=== PATIENT | male | born 1975 | race Caucasian/White ===

== ENCOUNTER 2017-01-28 10:24 | Emergency (ER) | payer OTHER ==
[~2017-01-28] VITALS: Ht 167.6 cm; Wt 90.0 kg
[~2017-01-28 10:24] MED LIST: FLM4 PO; IBUP-103 PO
[2017-01-28 10:29] VITALS: TEMP 36.8; Ht 167.6 cm; Wt 90.0 kg
[2017-01-28] MEDS ORDERED: ONDANSETRON 4MG OD TAB PO STA (11:12)
[2017-01-28] MEDS ORDERED: OXYCODONE HCL IR 5 MG TAB (IMMEDIATE RELEASE) PO STA (11:12)
--- NOTE | 2017-01-28 11:55 | DIAGNOSTIC IMAGING REPORT ---
CERVICAL SPINE CT CT DOSE: 522.83 mGycm HISTORY: Fall. Neck pain. trauma TECHNIQUE: Multiaxial CT images of the cervical spine were performed and reformatted in the sagittal and coronal plane without the use of contrast. COMPARISON: None. FINDINGS: No fractures. No subluxation. Prevertebral soft tissues and the C1-C2 interval are intact. No pneumothorax. Complete opacification of the right mastoid air cells and right middle ear cavity. Mild disc space narrowing and small endplate osteophytes at C5-C6. IMPRESSION: No fractures within the cervical spine. Complete opacification of the right mastoid air cells and right middle ear cavity. Electronically signed by: Jeromy Nelson M.D. 01/28/2017 11:54 AM Dictated Date/Time: 01/28/2017 11:48 AM
--- NOTE | 2017-01-28 11:58 | DIAGNOSTIC IMAGING REPORT ---
CT SCAN OF THE BRAIN WITHOUT IV CONTRAST CLINICAL HISTORY: Fall with head injury. COMPARISON STUDY: CT the brain dated 02/09/2009. TECHNIQUE: Unenhanced axial CT scan of the brain is performed from the vertex to the skull base. Automated dose control exposure was utilized. CT DOSE: 823.94 mGycm FINDINGS: Brain parenchyma: The brain parenchyma is normal in appearance. There is no hemorrhage, mass effect, or evidence of acute territorial ischemia by CT criteria. Maki-white matter is preserved. No extra-axial fluid collection is seen. Ventricles, sulci, cisterns: Normal in configuration. Intracranial vasculature: The visualized intracranial vasculature at the skull base is normal in appearance. Calvarium: There is no depressed femoral fracture. Soft tissues: There is a scalp contusion over the posterior vertex. Sinuses and mastoids: The visualized paranasal sinuses are clear. There is a large right mastoid effusion. The left mastoid air cells are well pneumatized. Orbits: The bony orbits are grossly intact. IMPRESSION: 1. No acute intracranial abnormality. 2. Large right mastoid effusion. 3. Posterior scalp contusion. No depressed calvarial fracture is seen. Electronically signed by: Carlos Joshua M.D. 01/28/2017 11:56 AM Dictated Date/Time: 01/28/2017 11:44 AM
[2017-01-28] MEDS ORDERED: CYCL10TA6 PO (12:59)
--- NOTE | 2017-01-28 12:59 | EMERGENCY ROOM VISIT NOTE ---
ED Visit Note First contact with patient: 10:34 CHIEF COMPLAINT: Head injury and neck pain after a fall at work work HISTORY OF PRESENT ILLNESS: Patient is a 41-year-old white male who generally enjoys good health, who presents to emergency department for evaluation of head and neck pain after a fall. Roughly 1 hour ago, patient states that he slipped on ice and fell, he landed striking the back of his head on concrete. He states that he acutely felt pain in the back of his head and in his neck radiating slightly towards his shoulders. He did not lose consciousness, but states that he felt tingly all over and felt like he couldn't move his arms. He states that those symptoms have subsequently resolved. He complains of pain where he struck his head in addition to a mild generalized headache. He notes pain in the neck, bilaterally radiating into the shoulders. He reports feeling slightly nauseous and photophobic. He denies any numbness, tickling or weakness radiating into the upper extremities presently. He rates his discomfort a 7/10. He is uncomfortable because of the cervical collar placed in triage. He has a remote history of renal cell carcinoma and treated with nephrectomy. He has a history of multiple kidney stones. He denies any difficulty with balance, speech or coordination. No vomiting. He denies any other injuries related to the fall. REVIEW OF SYSTEMS:Review of systems as per HPI. All other systems reviewed were negative. 10 systems reviewed. PMH: Electronic medical records are reviewed and summarized as above/below. See Problem List. SOCIAL HISTORY: Patient lives at home with his family. 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 Former smoker. PHYSICAL EXAM: CONSTITUTIONAL: Patient is uncomfortable appearing 41-year-old white male who is awake and alert and laying in a darkened room. He has a cervical collar on. HEENT: Normocephalic, atraumatic. Tender in the occipital area, no palpable scalp hematoma. Pupils equal, round, reactive to light and accommodation. EOMs intact without nystagmus. Sclera are anicteric. Tympanic membranes intact , with normal landmarks. External canals are clear. No hemotympanum or Singh sign. Oral and nasopharynx are clear. No CSF rhinorrhea. Mucous membranes are moist. NECK: Supple, nontender, no lymphadenopathy. Full range of motion. HEART: Regular rate and rhythm, with normal S1 and S2, no murmur or gallop or rub is heard. LUNGS: Breath sounds equal and clear to auscultation without wheezes, rales, or rhonchi heard. SKIN: No lesions or rash, normal skin turgor. EXTREMITIES: No cyanosis, edema, joint tenderness or swelling. No deformity. SPINE: Patient has a hard cervical collar in place. He was laid in a prone position and the collar was opened. The posterior spinous processes were palpated, and were nontender to palpation. He had discomfort with attempts at flexion and rotation. NEUROLOGICAL: Alert and oriented x4. Cranial nerves 2 through 12, sensation and strength grossly intact. Gait is normal. Negative Romberg, and pronator drift. Finger to nose, finger to finger and rapid alternating movements are intact. Immediate, recent and remote memories are intact. Concentration is normal. ED course: The patient was seen and evaluated as above. He was medicated with [place] and Zofran for discomfort. Head and cervical spine CT scans were obtained and were negative for acute fracture or intracranial bleed. Right middle ear effusion and right mastoid were opacified. The patient was reassessed after CT scan. He reported significant improvement in his discomfort with the oral medication. He was reexamined and had full range of motion of the cervical spine without any discomfort. He reports that he has problems with chronic congestion. He has had diminished hearing in the right ear for several months, but due to lack of insurance he has not been able to follow-up. He does not demonstrate any findings consistent with acute otitis media or mastoiditis by physical exam which would require antibiotics, and per the patient it sounds like this is chronic in nature. With regards to his fall, I discussed with him closed head injury and cervical strain treatment. I did discuss with him the possibility of a mild concussion,, and outlined head injury instructions with him. He does not demonstrate any evidence for acute intracranial bleed, skull fracture, cervical spine fracture or unstable ligamentous injury of the cervical spine. He rated his discomfort a 3/10 at discharge. His is driving. CERVICAL SPINE CT CT DOSE: 522.83 mGycm HISTORY: Fall. Neck pain. trauma TECHNIQUE: Multiaxial CT images of the cervical spine were performed and reformatted in the sagittal and coronal plane without the use of contrast. COMPARISON: None. FINDINGS: No fractures. No subluxation. Prevertebral soft tissues and the C1-C2 interval are intact. No pneumothorax. Complete opacification of the right mastoid air cells and right middle ear cavity. Mild disc space narrowing and small endplate osteophytes at C5-C6. IMPRESSION: No fractures within the cervical spine. Complete opacification of the right mastoid air cells and right middle ear cavity. CT SCAN OF THE BRAIN WITHOUT IV CONTRAST CLINICAL HISTORY: Fall with head injury. COMPARISON STUDY: CT the brain dated 02/09/2009. TECHNIQUE: Unenhanced axial CT scan of the brain is performed from the vertex to the skull base. Automated dose control exposure was utilized. CT DOSE: 823.94 mGycm FINDINGS: Brain parenchyma: The brain parenchyma is normal in appearance. There is no hemorrhage, mass effect, or evidence of acute territorial ischemia by CT criteria. Maki-white matter is preserved. No extra-axial fluid collection is seen. Ventricles, sulci, cisterns: Normal in configuration. Intracranial vasculature: The visualized intracranial vasculature at the skull base is normal in appearance. Calvarium: There is no depressed femoral fracture. Soft tissues: There is a scalp contusion over the posterior vertex. Sinuses and mastoids: The visualized paranasal sinuses are clear. There is a large right mastoid effusion. The left mastoid air cells are well pneumatized. Orbits: The bony orbits are grossly intact. IMPRESSION: 1. No acute intracranial abnormality. 2. Large right mastoid effusion. 3. Posterior scalp contusion. No depressed calvarial fracture is seen. Problem List Medical Problems: (1) Acquired solitary kidney Status: Chronic (2) Acquired solitary kidney Status: Resolved (3) Flank pain Status: Resolved (4) Kidney stone Status: Resolved (5) Right flank pain Status: Resolved (6) Right ureteral stone Status: Resolved Surgical Problems: (1) H/O unilateral nephrectomy Permanent Comment: LEFT S/P TRAUMA, AGE 17 Status: Resolved Current/Historical Medications Scheduled PRN Cyclobenzaprine Hcl (Flexeril), 10 MG PO TID PRN for Muscle Spasms Allergies Coded Allergies: No Known Allergies (Unverified , 01/28/17) Vital Signs Date Time Temp Pulse Resp B/P Pulse Ox O2 Delivery O2 Flow Rate FiO2 01/28/17 13:16 79 18 148/92 99 01/28/17 10:29 36.8 84 16 153/103 96 Medications Administered Medications (Trade) Dose Ordered Sig/Darshana Route Start Time Stop Time Status Last Admin Dose Admin Ondansetron HCl (Zofran Odt) 4 mg NOW STAT PO 01/28/17 11:12 01/28/17 11:13 DC 01/28/17 11:21 4 MG Oxycodone HCl (Roxicodone Immediate Rel Tab) 5 mg NOW STAT PO 01/28/17 11:12 01/28/17 11:13 DC 01/28/17 11:21 5 MG Departure Information Impression Primary Impression: Closed head injury Additional Impressions: Cervical strain Fall Work related injury Prescriptions Cyclobenzaprine Hcl (FLEXERIL) 10 Mg Tab 10 MG PO TID Y for Muscle Spasms, #20 TAB Prov: Venita Fang PA 01/28/17 Referrals Mayte Olmstead M.D. (PCP) Patient Instructions My [facility] Additional Instructions DO NOT drive, drink alcohol, operate machinery, or perform dangerous activities today. You were given medications in the ER that can affect your ability to safely function or operate a vehicle. Rest and avoid strenuous activities for the next few days. Get 8-10 hours of sleep per night. Limit activities that involve significant concentration and attention during this time to speed your recovery. This includes studying, attending school, playing video games, and heavy reading. Your brain needs to rest. Eat right and eat often. Now is the time to feed your brain. Well balanced diets that avoid high sugar foods, sodas, caffeine, etc. are better for your brain. NO ALCOHOL OR DRUGS! Avoid stimulants like caffeine, red bull, mountain dew, "energy" drinks, etc. Ibuprofen(Motrin, Advil) may be used for fever or pain. Use 600mg every six hours as needed. Take with food. Avoid using more than 2400mg in a 24 hour period. Do not use 2400mg per day for more than three consecutive days without physician direction. Prolonged inappropriate use can lead to stomach upset or ulcers. (AND/OR) Acetaminophen(Tylenol) may be used for fever or pain. Use 1000mg every six hours as needed. Avoid using more than 3000mg in a 24 hour period. Cyclobenzaprine (Flexeril) 10 mg: Take 1 pills 3 times daily as needed for muscle spasms.. Avoid alcohol, operating machinery or dangerous equipment, working on ladders or roofs, DRIVING, or situations where being under the influence may be dangerous. Rest and avoid heavy lifting until your symptoms resolve and then gradually return to full activity. A good rule of thumb is if it hurts your neck to perform a certain activity, then it should be avoided until you are healthy again. A heating pad, warm compresses, or a hot shower may help with tight muscles and can be done several times a day as needed. Gentle stretching and range of motion exercises as tolerated. Continue current medications. FOLLOW UP INSTRUCTIONS: You should have a follow up with your workers compensation/occupational health physician in 3-5 days regarding your injury. Problems could arise over the next 24 to 48 hours. You should not be left alone and MUST go to the hospital immediately if you: -Have a headache that suddenly gets worse. -Are very drowsy or cannot be woken up from sleep. -Can't recognize people or places. -Have repeated vomiting. -Behave unusually, seemed confused, or start acting irritable. -Have a seizure (arms and legs start jerking uncontrollably). -Have weak or numb arms or legs. -Are unsteady on your feet -Experience slurred speech or difficulty speaking. Problem Qualifiers
[2017-01-28 13:16] VITALS: BP 148/92; PULSE 79; O2SAT 99
== END 2017-01-28 13:17 | disposition home or self-care (01) ==
LOC: C.EDB 10:26 → C.EDD 13:17
DX: S09.90XA Unspecified injury of head, initial encounter (principal); S16.1XXA Strain of muscle, fascia and tendon at neck level, initial encounter; W00.0XXA Fall on same level due to ice and snow, initial encounter; Y99.0 Civilian activity done for income or pay; Z87.891 Personal history of nicotine dependence

== ENCOUNTER 2018-06-23 14:20 | Emergency (ER) | payer OTHER ==
[~2018-06-23] VITALS: Ht 167.6 cm; Wt 92.7 kg
[2018-06-23 14:27] VITALS: TEMP 36.8; Ht 167.6 cm; Wt 92.7 kg
[2018-06-23] MEDS ORDERED: SODIUM CHLORIDE 0.9% 1000ML 1,000 ML IV STA (14:43)
[2018-06-23 15:00] LABS: BASO % 0.3 %; BASO ABS # 0.03 K/uL (0-0.2); EOS % 1.2 %; EOS ABS # 0.11 K/uL (0-0.5); HEMATOCRIT 44.1 % (42-52); HEMOGLOBIN 15.3 g/dL (14.0-18.0); IG# 0.03 K/uL (0.00-0.02); LYMPH % 22.7 %; LYMPH ABS # 2.17 K/uL (1.2-3.4); MEAN CELL VOLUME 86.3 fL (80-100); MEAN CORPUSCULAR HEMOGLOBIN 29.9 pg (25-34); MEAN CORPUSCULAR HGB CONC 34.7 g/dl (32-36); MEAN PLATELET VOLUME 10.5 fL (7.4-10.4); MONO % 6.3 %; NEUT % 69.2 %; PLATELET COUNT 279 K/uL (130-400); RED CELL DISTRIBUTION WIDTH CV 13.1 % (11.5-14.5); RED CELL DISTRIBUTION WIDTH SD 41.5 fL (36.4-46.3); WHITE BLOOD COUNT 9.54 K/uL (4.8-10.8)
--- NOTE | 2018-06-23 15:05 | DIAGNOSTIC IMAGING REPORT ---
SINGLE VIEW CHEST CLINICAL HISTORY: Weakness. Change in mental status. FINDINGS: An AP, portable, upright chest radiograph is compared to study dated 06/10/2006. The examination is degraded by portable technique and patient rotation. The heart is top normal for projection. The mediastinal contour is within normal limits. Linear atelectasis is seen in the left lower lung. The lungs and pleural spaces are otherwise clear. No pneumothorax is seen. The bony thorax is grossly intact. IMPRESSION: No active disease in the chest. Electronically signed by: Carlos Joshua M.D. 06/23/2018 3:04 PM Dictated Date/Time: 06/23/2018 3:04 PM
[2018-06-23] MEDS ORDERED: PRLSR20 PO (15:16)
[2018-06-23] MEDS ORDERED: CYCL5TAB PO (15:16)
[2018-06-23] MEDS ORDERED: FLUT0.15 NAE (15:16)
[2018-06-23 15:32] LABS: ALBUMIN 3.8 gm/dl (3.4-5.0); ALKALINE PHOSPHATASE 99 U/L (45-117); ALT/SGPT 27 U/L (12-78); AST/SGOT 14 U/L (15-37); BLOOD UREA NITROGEN 15 mg/dl (7-18); CALCIUM 8.3 mg/dl (8.5-10.1); CARBON DIOXIDE 26 mmol/L (21-32); CREATININE 1.21 mg/dl (0.60-1.40); GLUCOSE 126 mg/dl (70-99); POTASSIUM 3.7 mmol/L (3.5-5.1); SODIUM 137 mmol/L (136-145); TOTAL PROTEIN 7.4 gm/dl (6.4-8.2)
[2018-06-23 16:09] VITALS: BP 152/101; PULSE 87; O2SAT 96
--- NOTE | 2018-06-23 18:05 | EMERGENCY ROOM VISIT NOTE ---
History Report prepared by Solitario: Kimber Tyler Under the Supervision of: Dr. Mu Kirkpatrick D.O. First contact with patient: 14:31 Chief Complaint: PALPITATIONS Stated Complaint: HEART PALPITATIONS History of Present Illness The patient is a 42 year old male who presents to the Emergency Room with complaints of intermittent palpitations starting today. The patient states that he has had these palpitations once a month starting a year ago. He reports that they normally only last a few seconds and then go away. He states that today the episodes have been going on longer. He reports that it feels like it is fluttering and then beats really hard. He states that it then feels like it goes back to normal for a short time, but comes shortly after. The patient complains of being shaky and short of breath. The patient notes that last week for 4 days he was unable to walk because he had a "fiery" sensation down his left leg and into his foot. He reports that it completely resolved, but was unsure if it was related. The patient notes that he was started on Flexeril 2 months ago for neck pain he has while he sleeps. He notes that he is unsure if it is related. He notes that he has issues with low potassium once in a while. The patient denies leg swelling, chest pain, nausea, vomiting, recent travel outside the countries, recent surgeries, ever being seen by his PCP for these symptoms, a history of an appendectomy, and a history of cholecystectomy. The patient notes that he drinks alcohol once a week and was a smoker for 25 years, but quit 5 years ago. Source of History: patient Onset: today Position: chest Quality: other (palpitations) Timing: intermittent Associated Symptoms: + SOB, No chest pain, No nausea, No vomiting Note: The patient complains of being shaky. The patient denies leg swelling. Review of Systems See HPI for pertinent positives & negatives. A total of 10 systems reviewed and were otherwise negative. Past Medical & Surgical Medical Problems: (1) Acquired solitary kidney (2) Acquired solitary kidney (3) Flank pain (4) Kidney stone (5) Right flank pain (6) Right ureteral stone (7) S/p nephrectomy Surgical Problems: (1) H/O unilateral nephrectomy Family History Patient reports no known family medical history. Social History Smoking Status: Former Smoker Alcohol Use: occasionally Marital Status: single Housing Status: lives with significant other Occupation Status: employed Current/Historical Medications Scheduled Fluticasone Propionate (Nasal) (Flonase Allergy Relief), 1 SPRAY LENA DAILY Omeprazole (Prilosec), 20 MG PO BID Scheduled PRN Cyclobenzaprine Hcl (Flexeril), 5 MG PO BID PRN for PAIN OR MUSCLE SPASMS Allergies Coded Allergies: Citalopram (Verified Adverse Reaction, Unknown, SEXUAL AFFECTS, 06/23/18) Physical Exam Vital Signs Date Time Temp Pulse Resp B/P (MAP) Pulse Ox O2 Delivery O2 Flow Rate FiO2 06/23/18 16:09 87 16 152/101 96 06/23/18 15:26 87 06/23/18 15:02 Room Air 06/23/18 15:02 Room Air 06/23/18 14:27 36.8 110 20 164/104 96 Room Air Physical Exam GENERAL: Patient is awake, alert, and in no acute distress. Patient is resting comfortably and showing no signs of anxiety EYES: The conjunctivae are clear. The pupils are round and reactive. EARS, NOSE, MOUTH AND THROAT: The nose is without any evidence of any deformity. Mucous membranes are moist. Tongue is midline NECK: The neck is nontender and supple. RESPIRATORY: Normal respiratory effort is noted. There is no evidence of wheezing rhonchi or rales to auscultation. CARDIOVASCULAR: Regular rate noted. Ectopy noted to auscultation. No definite murmur. GASTROINTESTINAL: The abdomen is soft. Bowel sounds are present in all quadrants. Abdomen is nontender. MUSCULOSKELETAL/EXTREMITIES: There is no evidence of gross deformity. Full range of motion is noted in the hips and shoulders. SKIN: There is no obvious evidence of any rash. There are no petechiae, pallor or cyanosis noted. NEUROLOGIC: Patient is awake alert and oriented x3. Strength is symmetric. Patellar reflexes are 2+ bilaterally. Medical Decision & Procedures ER Provider Diagnostic Interpretation: Radiology results as stated below per my review and radiologist interpretation: SINGLE VIEW CHEST CLINICAL HISTORY: Weakness. Change in mental status. FINDINGS: An AP, portable, upright chest radiograph is compared to study dated 06/10/2006. The examination is degraded by portable technique and patient rotation. The heart is top normal for projection. The mediastinal contour is within normal limits. Linear atelectasis is seen in the left lower lung. The lungs and pleural spaces are otherwise clear. No pneumothorax is seen. The bony thorax is grossly intact. IMPRESSION: No active disease in the chest. Electronically signed by: Carlos Joshua M.D. 06/23/2018 3:04 PM Dictated Date/Time: 06/23/2018 3:04 PM Laboratory Results 06/23/18 14:49 Red Blood Count 5.11, Mean Corpuscular Volume 86.3, Mean Corpuscular Hemoglobin 29.9, Mean Corpuscular Hemoglobin Concent 34.7, Mean Platelet Volume 10.5, Neutrophils (%) (Auto) 69.2, Lymphocytes (%) (Auto) 22.7, Monocytes (%) (Auto) 6.3, Eosinophils (%) (Auto) 1.2, Basophils (%) (Auto) 0.3, Neutrophils # (Auto) 6.60, Lymphocytes # (Auto) 2.17, Monocytes # (Auto) 0.60, Eosinophils # (Auto) 0.11, Basophils # (Auto) 0.03 06/23/18 14:49 Test 06/23/18 14:49 White Blood Count 9.54 K/uL (4.8-10.8) Red Blood Count 5.11 M/uL (4.7-6.1) Hemoglobin 15.3 g/dL (14.0-18.0) Hematocrit 44.1 % (42-52) Mean Corpuscular Volume 86.3 fL (80-100) Mean Corpuscular Hemoglobin 29.9 pg (25-34) Mean Corpuscular Hemoglobin Concent 34.7 g/dl (32-36) Platelet Count 279 K/uL (130-400) Mean Platelet Volume 10.5 fL (7.4-10.4) Neutrophils (%) (Auto) 69.2 % Lymphocytes (%) (Auto) 22.7 % Monocytes (%) (Auto) 6.3 % Eosinophils (%) (Auto) 1.2 % Basophils (%) (Auto) 0.3 % Neutrophils # (Auto) 6.60 K/uL (1.4-6.5) Lymphocytes # (Auto) 2.17 K/uL (1.2-3.4) Monocytes # (Auto) 0.60 K/uL (0.11-0.59) Eosinophils # (Auto) 0.11 K/uL (0-0.5) Basophils # (Auto) 0.03 K/uL (0-0.2) RDW Standard Deviation 41.5 fL (36.4-46.3) RDW Coefficient of Variation 13.1 % (11.5-14.5) Immature Granulocyte % (Auto) 0.3 % Immature Granulocyte # (Auto) 0.03 K/uL (0.00-0.02) Anion Gap 6.0 mmol/L (3-11) Est Creatinine Clear Calc Drug Dose 83.0 ml/min Estimated GFR () 83.9 Estimated GFR (Non- 72.4 BUN/Creatinine Ratio 12.2 (10-20) Calcium Level 8.3 mg/dl (8.5-10.1) Magnesium Level 2.0 mg/dl (1.8-2.4) Total Bilirubin 0.2 mg/dl (0.2-1) Direct Bilirubin < 0.1 mg/dl (0-0.2) Aspartate Amino Transf (AST/SGOT) 14 U/L (15-37) Alanine Aminotransferase (ALT/SGPT) 27 U/L (12-78) Alkaline Phosphatase 99 U/L (45-117) Troponin I < 0.015 ng/ml (0-0.045) Total Protein 7.4 gm/dl (6.4-8.2) Albumin 3.8 gm/dl (3.4-5.0) Thyroid Stimulating Hormone (TSH) 1.160 uIu/ml (0.300-4.500) Laboratory results per my review. Medications Administered Medications (Trade) Dose Ordered Sig/Darshana Route Start Time Stop Time Status Last Admin Dose Admin Sodium Chloride 1,000 ml @ 999 mls/hr Q1H1M STAT IV 06/23/18 14:43 06/23/18 15:53 DC 06/23/18 15:04 999 MLS/HR ECG Per My Interpretation Indication: palpitations Rate (beats per minute): 99 Rhythm: sinus rhythm Findings: PVC, other (no acute ST segment abnormalities) Comparison ECG Date: 06/10/2006 Change: Increased rate and presence of PVCs, but no other changes. ED Course 1436: The patient was evaluated in room C5. A complete history and physical examination were performed. 1443: Ordered NSS 1000 ml @ 999 mls/hr IV. 1538: Upon reevaluation, the patient is resting comfortably. I discussed the results and treatment plan with him. He verbalized agreement of the treatment plan. The patient was discharged home. Medical Decision Differential diagnosis: Etiologies such as premature contractions, electrolyte abnormality, cardiac dysrhythmia, thyroid dysfunction, pulmonary embolism, infection, gastrointestinal, as well as others were entertained. Nursing notes reviewed. The patient is a 42-year-old male who presented to the emergency department for an evaluation of palpitations. The patient was found to have PVCs. The patient was symptomatic with his PVCs. He was reevaluated multiple times. He was treated with IV fluids. On subsequent reevaluation the PVCs had improved. I discussed the patient's laboratory and radiographic studies with him. At this time I recommended that he call his family doctor to schedule a follow-up appointment. I also recommended that he discussed further testing with his primary care physician including echocardiogram and Holter monitoring. Otherwise he was encouraged to return to the emergency department immediately if symptoms change worsen or the need arises. Medication Reconcilliation Current Medication List: was personally reviewed by me Blood Pressure Screening Patient's blood pressure: Elevated blood pressure Blood pressure disposition: Referred to PCP Impression Primary Impression: Palpitations Additional Impression: PVCs (premature ventricular contractions) Scribe Attestation The scribe's documentation has been prepared under my direction and personally reviewed by me in its entirety. I confirm that the note above accurately reflects all work, treatment, procedures, and medical decision making performed by me. Departure Information Dispostion Home / Self-Care Referrals Mayte Olmstead M.D. (PCP) Forms HOME CARE DOCUMENTATION FORM, IMPORTANT VISIT INFORMATION, WORK / SCHOOL INSTRUCTIONS Patient Instructions My [facility] Additional Instructions Call your family doctor to schedule a follow-up appointment. Drink plenty clear liquids and keep herself well-hydrated. Follow-up with your family doctor soon as possible. He may require further study such as an echocardiogram or Holter monitor to further evaluate the cause your symptoms. Return to the emergency department immediately if symptoms change worsen or the need arises. Problem Qualifiers
== END 2018-06-23 16:10 | disposition home or self-care (01) ==
LOC: C.EDB 14:21 → C.EDC 16:10
DX: R00.2 Palpitations (principal); I49.3 Ventricular premature depolarization; Z87.891 Personal history of nicotine dependence; Z88.8 Allergy status to other drugs, medicaments and biological substances